=== PATIENT | male | born 1985 | race Caucasian/White ===

== ENCOUNTER → 2016-12-28 | Outpatient (CLI) | payer MEDICAID ==
[~2016-12-28] MED LIST: COUMADIN PO; FLEXERIL10 M1 PO; FLEXERIL10 MG PO; HYDROCODON-ACE1 EAC5 PO; LASIX PO; LISINOPRIL20 MG PO; METOPROLOL PO; NO MEDICATIONS; NORVASC PO; PRILOSEC PO; SIMVASTATIN10 MG PO; SOD BICARBONATE; SYNTHROID25 MCG PO; ULTRAM PO; ZYLOPRIM PO
--- NOTE | ~2016-12-28 | EKG ---
PATIENT: AVNI ALFREDO UNIT #: [id number] Ventricular Rate: 96 BPM Atrial Rate: 96 BPM P-R Interval: 130 ms QRS Duration: 88 ms Q-T Interval: 366 ms QTC Calculation(Bezet): 462 ms P Warren: 37 degrees Calculated R Warren: 56 degrees Calculated T Warren: 41 degrees Diagnosis Line: Normal sinus rhythm Diagnosis Line: Possible Left atrial enlargement Diagnosis Line: Borderline ECG Diagnosis Line: When compared with ECG of 04-FEB-2012 07:13, Diagnosis Line: No significant change was found Diagnosis Line: Confirmed by ARNEL CHEEMA MD ([id number]) on Diagnosis Line: 12/29/2016 9:06:39 PM INTERPRETING MD: YOLANDA
--- NOTE | ~2016-12-28 | CO ---
Unit #: [id number] #: [id number] Patient: AVNI ALFREDO [id number] [facility]. [place], [place] [address] [id number] O MR#: [id number] NAME: AVNI ALFREDO ROOM: Age: 31 Sex: M Admission Date: 12/28/2016 : 1985 Attending Physician: Jan Dobson M.D. Primary Care Physician: Sandoval Barth M.D. Consultation Date: 12/28/2016 CONSULTATION REPORT REASON FOR CONSULTATION Preoperative medical evaluation prior to right total hip arthroplasty for AVN of the right hip scheduled by Dr. Dobson for 01/11/2017. HISTORY OF PRESENT ILLNESS The patient is a 31-year-old male, who presents to preprocedural screening for the reasons indicated above. He has a complex medical history for his age. He denies upper chest, upper back, arm, neck, jaw pain, or pressure today. He denies dyspnea on exertion or paroxysmal nocturnal dyspnea. He has a known history of severe sleep apnea for which he is treated with BiPAP. He denies lightheadedness, dizziness, presyncope, syncope, and palpitations. He had RSV in September of this year and developed a pericardial effusion. 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 He has not received preoperative cardiac clearance at this time. He has no active complaints at the time of this interview today. PAST MEDICAL HISTORY 1. AVN of the right hip. 2. Asthma; hypertension; obstructive sleep apnea, on BiPAP at home. 3. Obesity, body mass index of 30. 4. History of GI bleed secondary to Pradaxa earlier this year. 5. 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 6. History of recent pericardial effusion, status post viral infection. 7. Hypothyroidism. 8. Elevated uric acid level. 9. Hyperlipidemia. 10. Elevated CK. 11. History of DVT in the right lower extremity in 2014 for which he was treated with Lovenox injections as a bridge to warfarin. Last dental exam approximately one month ago. 12. GERD. PAST SURGICAL HISTORY Fistula placement in the left wrist in 09/2015, which is clotted at this time. SOCIAL HISTORY , with an [id number], and his is expecting another child. He denies tobacco use, illicit drug use, and ETOH use. FAMILY HISTORY Coronary artery disease and hyperlipidemia. Unit #: [id number] #: [id number] Patient: AVNI ALFREDO A REVIEW OF SYSTEMS A 10-point review of systems is conducted and negative except as indicated under history of present illness above. ALLERGIES No known drug allergies. Lisinopril causes a cough. CURRENT MEDICATIONS 1. Norvasc 10 mg p.o. daily. 2. Zyloprim 200 mg p.o. daily. 3. Synthroid 25 mcg p.o. daily. 4. Simvastatin 10 mg p.o. daily. 5. Lasix 40 mg p.o. daily. 6. Prilosec 20 mg p.o. daily. 7. Metoprolol 12.5 mg p.o. daily. PHYSICAL EXAMINATION GENERAL: A 31-year-old male, awake, alert, and in no acute distress. VITAL SIGNS: Temperature 99, heart rate 97, respiratory rate 20, blood pressure 150/90, oxygen saturation 98% on room air. HEENT: Atraumatic, normocephalic. Sclerae anicteric. No discharge from eyes, ears, or nares. LYMPHATICS: No preauricular, postauricular, tonsillar, submental, anterior-posterior cervical adenopathy. ENDOCRINE: No thyromegaly, thyroid nodules, or tenderness. RESPIRATORY: Clear to auscultation in all hall bilaterally without wheezes, rhonchi, or rales. CARDIOVASCULAR: S1 and S2. Regular rate and rhythm without murmur or rub. GI: Bowel sounds are positive x4. Soft, nontender, and nondistended. EXTREMITIES: Right lower extremity has 2+ edema. No edema in the left lower extremity. Calves, soft and nontender. NEUROLOGIC: Speech is clear. Alert and oriented x3. Cranial nerves II through XII are grossly intact. Follows directions during examination. DIAGNOSTIC STUDIES 1. LABORATORY RESULTS: WBC 6.9; hemoglobin 13.6; hematocrit 41.8; and platelets 213,000. PT 10.8, INR 1.0. Sodium 140, potassium 3.9, chloride 108, CO2 is 22, glucose 90, BUN 36, creatinine 3.6, EGFR 21.5, calcium 9.0, AST 22, ALT 12, alkaline phosphatase 96, bilirubin total 0.4, total protein 6.9, albumin 3.5. Blood type O negative. Antibody screen negative. Urinalysis; protein 3+, urobilinogen 0.2, blood 1+. Urine culture not indicated. 2. MRSA nasal swab report is pending at this time. 3. CARDIOLOGY: A 12-lead EKG, normal sinus rhythm, possible atrial enlargement, borderline ECG. A confirmed is report pending at this time. 4. IMAGING STUDIES: Two-view chest x-ray report pending at this time. Cardiovascular; bilateral lower extremity duplex venous Doppler report is pending at this time. IMPRESSION The patient is a 31-year-old, male, who presents to preprocedural screening for preoperative medical evaluation prior to right total hip arthroplasty for avascular necrosis of the right hip. The patient's Cook revised cardiac risk index is equal to 0.4%. This represents the patient's perioperative risk of fatal or nonfatal Unit #: [id number] #: [id number] Patient: AVNI ALFREDO myocardial infarction, cardiopulmonary arrest, arrhythmia, and/or pulmonary edema. This has been discussed in detail with the patient and he wishes to proceed with surgery at this time. 1. History of asthma, controlled. 2. Hypertension. Blood pressure is stable today. Continue current medications and monitor renal function and blood pressure perioperatively. 3. Severe obstructive sleep apnea, maintained on BiPAP at home. The patient will be placed on SANDI protocol postoperatively and the patient has been advised to bring his CPAP for use on home settings postoperatively and he has verbalized understanding of this information. The patient has been evaluated by Martinez Rudolph M.D. and he has been cleared from his perspective to undergo the hip surgery and the need to use CPAP with current pressure settings of 12 to 17 cm of H2O for all sleep. 4. Obesity, body mass index of 30. 5. History of gastrointestinal bleed earlier this year on Pradaxa. 6. 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 Established with Dr. Cherry at [facility]. The patient states he has been given preoperative renal clearance. The nurse is in the process of obtaining clearance at this time. 7. History of recent pericardial effusion. The patient is stable from a cardiac standpoint today. The patient underwent a 2D echocardiogram study on 10/26/2016 with the conclusion of small generalized pericardial effusion present. The patient has been advised that he needs to obtain preoperative cardiac clearance from his energy systems laboratory director, Dr. Argueta and have a letter of this clearance faxed to Dr. Dobson's office prior to surgery. 8. Hypothyroidism. The patient's TSH, free T3, and free T4 are all within normal range today. 9. Elevated uric acid level. We will continue current dose of allopurinol. The patient denies history and/or symptoms of gout. 10. Hyperlipidemia. Continue simvastatin postoperatively. 11. Mildly elevated CK. I have requested that we recheck CK total in the a.m. of OR. 12. History of low back pain, nonchronic, related to muscle strain. 13. History of deep venous thrombosis in the right lower extremity after prednisone therapy. Bilateral lower extremity duplex venous Doppler report is pending at this time and perioperative anticoagulants per order of Dr. Dobson. 14. Gastroesophageal reflux disease. We will continue Prilosec 20 mg p.o. daily. 15. Health maintenance. The patient states his last dental exam was approximately one month ago and that he has no cavities or other oral issues at this time. Thank you for allowing us to participate in the care of this patient. We will gladly follow him for postoperative medical management pending preoperative cardiac clearance. Confirmation of preoperative renal clearance. We have just received PCP medical clearance for the surgery. Dictated by... Miguelangel King/koby TD: 12/29/2016 12:08 JOB #: [id number] Unit #: [id number] #: [id number] Patient: AVNI ALFREDO CONSULTATION REPORT Page 1 of 1 X Katia Judd APRN CONSULTATION REPORT
--- NOTE | ~2016-12-28 | CR63 ---
[facility] A Service of [facility] RADIOLOGY TEXT RESULTS PATIENT: AVNI ALFREDO LOCATION: CNIV : [birth year] UNIT #: [id number] AGE: [address]: Jan Dobson MD SEX: M ORDER DR: [id number] [facility] [address] [place], [place] [address] [id number] O MR#: [id number] Acc #: [id number] NAME: AVNI ALFREDO : 1985 SEX: M STUDY DATE/TIME: 12/28/2016 12:00 UNIT: CNIV ROOM: STUDY DESCRIPTION: CR Chest 2 View Attending Physician: Jan Dobson M.D. Referring Physician: Jan Dobson M.D. Ordering Physician: Jan Dobson M.D. Primary Care Physician: Sandoval Barth M.D. MEDICAL IMAGING REPORT This report is preliminary unless electronic signature is present EXAM Chest, 12/28/2016, [facility]. HISTORY 31-year-old male patient with avascular necrosis right hip. Patient for right total hip arthroplasty. COMPARISON Chest, 02/04/2012. FINDINGS Two-view chest demonstrates cardiac enlargement. Hilar structures are preserved. Bilateral lungs are expanded and clear. Large body habitus noted. IMPRESSION Unexplained cardiomegaly. Correlate clinically and consider cardiac evaluation. Chest appears otherwise negative. Dictated by... Humphrey Mckeon M.D. THIS IS AN ELECTRONICALLY VERIFIED REPORT Humphrey Mckeon M.D. at 12/28/2016 2:09 PM SORIN/romain TD: 12/28/2016 14:01 JOB #: [id number] MEDICAL IMAGING REPORT Page 1 of 1 COPY
--- NOTE | ~2016-12-28 | US84 ---
[id number] [facility] [address] [place], [place] [address] [id number] O MR#: [id number] Acc #: [id number] NAME: AVNI ALFREDO : 1985 SEX: M STUDY DATE/TIME: 12/28/2016 12:24 UNIT: CNIV ROOM: STUDY DESCRIPTION: US LE Veins Complete Jose Stdy Attending Physician: Jan Dobson M.D. Referring Physician: Jan Dobson M.D. Ordering Physician: Jan Dobson M.D. Primary Care Physician: Sandoval Barth M.D. MEDICAL IMAGING REPORT This report is preliminary unless electronic signature is present EXAM Bilateral lower extremity venous duplex 12/28/2016 HISTORY Bilateral lower extremity pain and swelling for 2 years. History of prior lower extremity deep vein thrombosis. TECHNIQUE Venous ultrasound examination of both lower extremities was performed using grayscale, spectral Doppler and color flow Doppler imaging. FINDINGS The examination is negative. There is no evidence of deep venous thrombus from the groin to the lower calf bilaterally. Visualized greater saphenous veins are also patent. IMPRESSION Negative examination. No evidence of lower extremity deep venous thrombosis. Dictated by... Jefferson Carolina M.D. THIS IS AN ELECTRONICALLY VERIFIED REPORT Jefferson Carolina M.D. at 12/29/2016 9:56 AM Hui TD: 12/28/2016 14:59 JOB #: [id number] MEDICAL IMAGING REPORT Page 1 of 1 COPY
[2016-12-28 11:31] LABS: HEMATOCRIT 41.8 % (38.0-50.0); HEMOGLOBIN 13.6 gm/dL (13.0-16.0); MEAN CELL VOLUME 87.1 FL (83-96); MEAN CORPUSCULAR HEMOGLOBIN 28.4 PG (28-34); MEAN CORPUSCULAR HGB CONC 32.6 g/dL (30-36); MEAN PLATELET VOLUME 8.8 FL (6.5-11.5); RED BLOOD COUNT 4.8 X10e (3.90-5.60); RED CELL DISTRIBUTION WIDTH 16.9 % (11.0-15.5); WHITE BLOOD COUNT 6.9 X10e3 (4.0-10.5)
[2016-12-28 11:44] LABS: PROTHROMBIN TIME (PATIENT) 10.8 SECONDS (9.6-11.5)
[2016-12-28 11:57] LABS: ALBUMIN SERUM 3.5 g/dL (3.5-5.0); BILIRUBIN,TOTAL 0.4 mg/dL (0.2-2.0); CREATININE SERUM 3.6 mg/dL (0.6-1.4); GLOM FILT RATE Estimated 21.5 mL/min (>60); POTASSIUM 3.9 mmol/L (3.5-5.1); PROTEIN TOTAL SERUM 6.9 g/dL (6.0-8.3)
[2016-12-28 13:14] LABS: URINE APPEARANCE CLEAR; URINE BILIRUBIN NEG (NEG); URINE BLOOD 1+ (NEG); URINE COLOR YELLOW; URINE GLUCOSE NEG (NEG); URINE KETONE NEG (NEG); URINE LEUKOCYTE ESTERASE NEG (NEG); URINE NITRATE NEG (NEG); URINE PH 5.5 (5-8); URINE PROTEIN 3+ (NEG); URINE SPECIFIC GRAVITY 1.012 (1.003-1.035); URINE UROBILINOGEN 0.2 MG/DL (NEG)
[2016-12-28 13:16] LABS: U HYALINE CASTS AUWI 0-2 /[LPF]; URBCS1 AUWI 0-2 /[HPF] (0-2); URINE BACTERIA AUWI NEG (NEGATIVE); URINE SQUAMOUS EPITHELIAL CELL NONE SEEN /[HPF]; UWBCS1 AUWI 0-2 (0-5)
[2016-12-28 13:18] LABS: CULTURE INDICATED? NO
[2016-12-28 13:43] LABS: URINE SOURCE CLEAN CATCH
== END | disposition home or self-care (01) ==
LOC: CNIV 10:55 → CAMB 12:00
PROVIDERS: Orthopaedic Surgery
DX: Z01.818 Encounter for other preprocedural examination (principal); M87.9 Osteonecrosis, unspecified; M79.605 Pain in left leg; M79.604 Pain in right leg; M79.89 Other specified soft tissue disorders; I51.7 Cardiomegaly; Z86.79 Personal history of other diseases of the circulatory system
CPT/HCPCS: 36415; 71020; 80053; 81003; 85027; 85610; 86850; 86900; 86901; 87070; 93005; 93970

== ENCOUNTER 2017-01-11 06:32 | Inpatient (IN) | payer MEDICAID ==
--- NOTE | ~2017-01-11 | OR ---
Unit #: [id number] #: [id number] Patient: AVNI ALFREDO [id number] [address] [place], [place] [address] [id number] I MR#: [id number] NAME: AVNI ALFREDO ROOM: [facility] Date of Procedure: 01/25/2017 Admission Date: 01/11/2017 Surgeon: Jan Dobson M.D. : 1985 Attending Physician: Jan Dobson M.D. Primary Care Physician: Sandoval Barth M.D. OPERATIVE REPORT JOB NOTE: CONTINUATION CONTINUATION After this was done, we then did a trial reduction with the 36 mm head, once again with +5, and the stability was appropriate and leg lengths were appropriate, so the real +5, 36 mm ceramic head was opened and applied. The rest of the ropivacaine mixture was injected. The wound was irrigated with Betadine and bacitracin. The capsule was repaired with 0 Vicryl. The fascia was closed with a running #1 Stratafix suture. The subcutaneous was closed with 0 and 2-0 Vicryl and david in the skin. Sterile dressing applied. Abduction pillow positioned and general anesthetic reversed. Dictated by... Cathy Lerma/koby TD: 01/25/2017 11:57 JOB #: [id number] OPERATIVE REPORT Page 1 of 1 X Jan Dobson MD X PROCEDURE OPERATIVE NOTE
--- NOTE | ~2017-01-11 | OR ---
Unit #: [id number] #: [id number] Patient: AVNI ALRFEDO [id number] [place], [place] [address] [id number] I MR#: [id number] NAME: AVNI ALFREDO ROOM: [facility] Date of Procedure: 01/11/2017 Admission Date: 01/11/2017 Surgeon: Jan Dobson M.D. : 1985 Attending Physician: Jan Dobson M.D. Primary Care Physician: Sandoval Barth M.D. OPERATIVE REPORT PREOPERATIVE DIAGNOSIS Avascular necrosis of the right hip. POSTOPERATIVE DIAGNOSIS Avascular necrosis of the right hip. PROCEDURE PERFORMED Right total hip. ANESTHESIA General. ESTIMATED BLOOD LOSS 300 to 400 mL. DESCRIPTION OF PROCEDURE The patient was brought to the operating room, given 2 g of Ancef and 1500 mg of vancomycin. This will be continued postop, but discontinued within 23 hours from the start time of surgery. He was then given a general anesthetic, placed in decubitus position with right side up. The right hip was prepped and draped in a sterile fashion. Modified Aufranc incision was mapped out and made. The subcutaneous was dissected away and the fascia split longitudinally. A posterior approach was carried out to the hip. The short external rotators were taken down. The posterior hip capsule was T'd open and the hip was dislocated. The neck osteotomy was performed. The head fragment was removed. The femur was retracted anteriorly and the labrum was debrided from the acetabulum. The acetabulum was progressively reamed with basket reamers up to a 51. A 52 mm DePuy Champlin cup with Gription was inserted in 40 degrees of abduction and 20 degrees of forward flexion. A neutral trial 36 mm liner was placed in the cup. Piriformis sinus was cleaned out with a rongeur and a knife. Starter reamer passed down the femur and then the rigid reamers used up to a size 7. Broaches were used up to a size 7 and when this was done, a trial reduction was carried out with a standard offset neck and first 1.5 head. The hip was stable with the leg lengths appeared to be a little bit short, so we went to a +5 head and this seemed to give good stability and appropriate leg length. The trials were removed. The real liner impacted into the cup. The periacetabular region was injected with a ropivacaine mixture. We then impacted the femoral component into 20 degrees of anteversion. Once this was done, the +5, 36 mm ceramic head was applied. The hip was reduced. Stability and leg lengths were appropriate. The rest of the ropivacaine mixture was injected. The wound Unit #: [id number] #: [id number] Patient: AVNI ALFREDO was irrigated with a dilute Betadine solution and then bacitracin. The capsule was repaired with 0 Vicryl and then the fascia was closed with a running #1 Stratafix suture. The subcutaneous was closed with 0 and 2-0 Vicryl and david in the skin. Sterile dressing applied. Abduction pillow positioned and the general anesthetic reversed. Dictated by... Cathy Lerma/koby TD: 01/21/2017 14:16 JOB #: [id number] OPERATIVE REPORT Page 1 of 1 X Jan Dobson MD X PROCEDURE OPERATIVE NOTE
--- NOTE | ~2017-01-11 | DS ---
Unit #: [id number] #: [id number] Patient: AVNI MARQUES [id number] [facility]. [place], [place] [address] [id number] I MR#: [id number] NAME: AVNI MARQUES ROOM: [facility] Age: Sex: M Admission Date: 01/11/2017 : 1985 Discharge Date: 01/12/2017 Attending Physician: Jan Dobson M.D. Primary Care Physician: Sandoval Barth M.D. DISCHARGE SUMMARY ADMITTING DIAGNOSIS Avascular necrosis, right hip. DISCHARGE DIAGNOSIS Avascular necrosis, right hip. HOSPITAL COURSE On 01/11/2017, Mr. Marques underwent a right total hip arthroplasty. He tolerated the procedure well. He was transported to the fourth floor where he underwent physical therapy, medical management, and anticoagulation therapy. He is doing well and is ready to be discharged. DISPOSITION Stable at discharge. Discharged home with home health. MEDICATIONS ON DISCHARGE Include his routine home meds. In addition: 1. Jefferson 10/325. 2. Coumadin 1 mg p.o. daily. FOLLOWUP AND INSTRUCTIONS 1. Mr. Marques is going to be discharged home with home health. 2. Patient is on Coumadin for DVT prophylaxis. PTs and INRs to be drawn every Wednesday and in addition to tomorrow, 01/13/2017. 3. Physical therapy is to be done for dislocation precautions and ambulation. 4. Patient is on a walker for four weeks and a cane for an additional two weeks. 5. Followup with Dr. Dobson is in six weeks. Please call our office for that appointment date and time. 6. Patient has bilateral MARCELINO hose on during the day and off in the evening. 7. Patient can shower in one week. 8. Patient's skin david are to be discontinued two weeks postop. 9. Any questions, call our office at [phone]. Dictated by... Carmen ScottACataC. for Jan Dobson M.D. NGHIA/gen TD: 01/14/2017 09:50 Unit #: [id number] #: [id number] Patient: AVNI MARQUES JOB #: [id number] DISCHARGE SUMMARY Page 1 of 1 X Portia Almodovar X DISCHARGE SUMMARY
--- NOTE | ~2017-01-11 | CR145 ---
[facility] A Service of [facility] RADIOLOGY TEXT RESULTS PATIENT: AVNI ALFREDO LOCATION: [facility] 451-01 : [birth year] UNIT #: [id number] AGE: [address]: Jan Dobson MD SEX: M ORDER DR: [id number] [facility] [address] [place], [place] [address] [id number] I MR#: [id number] Acc #: [id number] NAME: AVNI ALFREDO : 1985 SEX: M STUDY DATE/TIME: 01/11/2017 10:19 UNIT: [facility] ROOM: [facility] STUDY DESCRIPTION: CR Hip 1 View Rt Attending Physician: Jan Dobson M.D. Ordering Physician: Jan Dobson M.D. Primary Care Physician: Sandoval Barth M.D. MEDICAL IMAGING REPORT This report is preliminary unless electronic signature is present EXAM Right hip one-view 01/11/2017 HISTORY 31-year-old male status post right total hip. Pain. FINDINGS Single AP portable view demonstrates postop status following total right hip arthroplasty. Components are anatomically positioned. Soft tissue swelling with air noted in the soft tissues. Surgical clips also remain in place. IMPRESSION Normal postop appearance following total right hip arthroplasty. Dictated by... Humphrey Mckeon M.D. THIS IS AN ELECTRONICALLY VERIFIED REPORT Humphrey Mckeon M.D. at 01/11/2017 2:54 PM SORIN/jaclyn TD: 01/11/2017 14:20 JOB #: [id number] MEDICAL IMAGING REPORT Page 1 of 1 COPY
[~2017-01-11 06:32] MED LIST changes: -COUMADIN PO; -HYDROCODON-ACE1 EAC5 PO
[2017-01-11 07:48] LABS: PROTHROMBIN TIME (PATIENT) 10.9 SECONDS (10.0-11.7)
[2017-01-11 08:05] LABS: BUN/CREATININE RATIO 12.12; CALCIUM SERUM 9.3 mg/dL (8.4-10.2); CREATININE SERUM 3.3 mg/dL (0.6-1.4); GLOM FILT RATE Estimated 23.9 mL/min (>60); MAGNESIUM 2.1 mg/dL (1.6-3.0); POTASSIUM 4.1 mmol/L (3.5-5.1)
[2017-01-12 06:19] LABS: BASOPHIL% 0.1 % (0-2.5); HEMATOCRIT 36.3 % (38.0-50.0); HEMOGLOBIN 11.8 gm/dL (13.0-16.0); LYMPHOCYTE# 1.2 X10e3 (1.0-3.5); MEAN CORPUSCULAR HEMOGLOBIN 28.5 PG (28-34); MEAN CORPUSCULAR HGB CONC 32.4 g/dL (30-36); MEAN PLATELET VOLUME 8.7 FL (6.5-11.5); MONOCYTE# 0.9 X10e3 (0-1.0); MONOCYTE% 5.2 % (3.0-12.0); NEUTROPHIL# 15.1 X10e3 (1.5-7.1); NEUTROPHIL% 87.7 % (40-75); RED BLOOD COUNT 4.12 X10e (3.90-5.60); RED CELL DISTRIBUTION WIDTH 16.9 % (11.0-15.5); WHITE BLOOD COUNT 17.2 X10e3 (4.0-10.5)
[2017-01-12 06:21] LABS: DIFF IND YES
[2017-01-12 06:46] LABS: ANISOCYTOSIS MOD; PLATELET ESTIMATE NORMAL (NORMAL)
[2017-01-12 06:47] LABS: PLATELET COUNT 190 X10e3 (140-420)
[2017-01-12 07:21] LABS: BUN/CREATININE RATIO 11.61; CALCIUM SERUM 8.8 mg/dL (8.4-10.2); CREATININE SERUM 3.1 mg/dL (0.6-1.4); GLOM FILT RATE Estimated 25.8 mL/min (>60); MAGNESIUM 1.8 mg/dL (1.6-3.0); PHOSPHOROUS 3.2 mg/dL (2.5-4.6); POTASSIUM 4.9 mmol/L (3.5-5.1)
[2017-01-12] MEDS ORDERED: COUMADIN PO (11:29)
[2017-01-12] MEDS ORDERED: HYDROCODON-ACE1 EAC5 PO (11:31)
== END 2017-01-12 16:03 | disposition home or self-care (01) | DRG 470 ==
LOC: CSUR 06:32 → C4B 08:00 → CSUR 08:00 → CPACUOF 08:00 → CSUR 09:06 → CPACUOF 09:06 → C4B 10:54
PROVIDERS: Nurse Practitioner; Orthopaedic Surgery
PROC: 0SR904Z Replacement of Right Hip Joint with Ceramic on Polyethylene Synthetic Substitute, Open Approach (ICD-10-PCS; principal; 2017-01-11 08:00)
DX: M87.9 Osteonecrosis, unspecified (principal); N18.4 Chronic kidney disease, stage 4 (severe); D62 Acute posthemorrhagic anemia; I12.9 Hypertensive chronic kidney disease with stage 1 through stage 4 chronic kidney disease, or unspecified chronic kidney disease; G47.33 Obstructive sleep apnea (adult) (pediatric); E66.9 Obesity, unspecified; Z68.30 Body mass index [BMI] 30.0-30.9, adult; E03.9 Hypothyroidism, unspecified; E78.5 Hyperlipidemia, unspecified; K21.9 Gastro-esophageal reflux disease without esophagitis; D72.829 Elevated white blood cell count, unspecified; R73.9 Hyperglycemia, unspecified; T38.0X5A Adverse effect of glucocorticoids and synthetic analogues, initial encounter; Y92.239 Unspecified place in hospital as the place of occurrence of the external cause
CPT/HCPCS: 73501; 80048; 82550; 83735; 84100; 85025; 85610; 88305; 88311; 94760; 94761; 97110; 97116; 97161; 97166; 97530; C1776; J0171; J0690; J0735; J1100; J1885; J2250; J2405; J2795; J3010; J3370